=== PATIENT | female | born 1945 | race Two or more races ===

== ENCOUNTER 2018-03-16 07:42 | Outpatient (CLI) | payer OTHER ==
[~2018-03-16 07:42] MED LIST: GUAIFENESIN DM118 ML PO; HYZAAR 50/12.51 TAB; LEVAQUIN750 MG PO; NORVASC2.5 M1; OSEL75CA PO; SINGULAIR10 MG PO; TUSSI-PRES LIQ118 ML PO
== END 2018-03-16 07:50 | disposition home or self-care (01) ==
LOC: LAB 07:42
DX: D50.8 Other iron deficiency anemias (principal); D59.1 Other autoimmune hemolytic anemias; D89.1 Cryoglobulinemia; C90.00 Multiple myeloma not having achieved remission; D51.3 Other dietary vitamin B12 deficiency anemia; D53.8 Other specified nutritional anemias

== ENCOUNTER 2018-08-02 07:02 | Outpatient (CLI) | payer OTHER | END 2018-08-02 09:20 | disposition home or self-care (01) | LOC: LAB 07:02 | DX: D50.8 Other iron deficiency anemias (principal); D80.8 Other immunodeficiencies with predominantly antibody defects; C90.00 Multiple myeloma not having achieved remission ==

== ENCOUNTER → 2018-09-10 06:38 | Outpatient (CLI) | payer OTHER ==
[~2018-09-10 06:38] MED LIST changes: +ADULT ASPIRIN R81 MG PO; +AMLODIPINE BESY10 MG PO; +CIDAFLEX TABLE1 EACH PO; +CLARINEX-D 121 EACH PO; +GLUCOSAMINE H1500 MG PO; +IRO-PLEX LIQUI120 ML PO; +MULTIVITAMINS1 EAC9 PO; +PEPCID40 MG PO; +PLAVIX75 MG PO; +PROBIOTIC1 EAC2 PO; +[UNRECOGNIZED DRUG - OTHER] PO
== END | disposition home or self-care (01) ==
LOC: RAD 06:38 → LAB 06:38
DX: C83.07 Small cell B-cell lymphoma, spleen (principal); Z01.812 Encounter for preprocedural laboratory examination; D68.8 Other specified coagulation defects; Z01.811 Encounter for preprocedural respiratory examination; Z01.810 Encounter for preprocedural cardiovascular examination

== ENCOUNTER → 2018-09-21 | Outpatient (CLI) | payer OTHER ==
[~2018-09-21] MED LIST changes: -AMLODIPINE BESY10 MG PO; -GLUCOSAMINE H1500 MG PO
== END | disposition home or self-care (01) ==
LOC: SONOGRAMA 09:50
DX: N60.11 Diffuse cystic mastopathy of right breast (principal); N60.12 Diffuse cystic mastopathy of left breast

== ENCOUNTER 2018-09-28 06:25 | Inpatient (IN) | payer OTHER ==
[2018-09-29] MEDS ORDERED: GLUCOSAMINE H1500 MG PO (08:31)
[2018-09-29] MEDS ORDERED: AMLODIPINE BESY10 MG PO (08:38)
== END 2018-10-02 10:00 | disposition home or self-care (01) | DRG 821 ==
LOC: CIR.AMB 06:25 → O/R 13:37 → SURH 13:37
PROVIDERS: ADMIT Specialist
PROC: 0DQ80ZZ Repair Small Intestine, Open Approach (ICD-10-PCS; 2018-09-28)
PROC: 07TP0ZZ Resection of Spleen, Open Approach (ICD-10-PCS; principal; 2018-09-28 11:00)
DX: C83.07 Small cell B-cell lymphoma, spleen (principal); K91.72 Accidental puncture and laceration of a digestive system organ or structure during other procedure; K57.32 Diverticulitis of large intestine without perforation or abscess without bleeding; N73.6 Female pelvic peritoneal adhesions (postinfective)

== ENCOUNTER 2018-11-02 07:00 | Outpatient (CLI) | payer OTHER ==
[~2018-11-02 07:00] MED LIST changes: +AMLODIPINE BESY10 MG PO; +GLUCOSAMINE H1500 MG PO
== END 2018-11-02 07:10 | disposition home or self-care (01) ==
LOC: LAB 07:00
DX: I10 Essential (primary) hypertension (principal); E11.9 Type 2 diabetes mellitus without complications; E03.8 Other specified hypothyroidism

== ENCOUNTER 2018-12-27 11:17 | Emergency (ER) | payer OTHER ==
[~2018-12-27] VITALS: Ht 152.4 cm; Wt 47.6 kg
== END 2018-12-27 18:40 | disposition home or self-care (01) ==
LOC: ER 11:17
DX: J40 Bronchitis, not specified as acute or chronic (principal); C83.07 Small cell B-cell lymphoma, spleen; D72.828 Other elevated white blood cell count

== ENCOUNTER 2019-01-03 08:31 | Outpatient (CLI) | payer OTHER | END 2019-01-03 08:36 | disposition home or self-care (01) | LOC: LAB 08:31 | DX: D64.89 Other specified anemias (principal); C83.07 Small cell B-cell lymphoma, spleen; C79.52 Secondary malignant neoplasm of bone marrow; I10 Essential (primary) hypertension; M83.8 Other adult osteomalacia; D55.8 Other anemias due to enzyme disorders ==

== ENCOUNTER 2019-01-27 14:31 | Outpatient (CLI) | payer OTHER | END 2019-01-27 14:54 | disposition home or self-care (01) | LOC: MAMO-SONO 14:31 | DX: Z12.31 Encounter for screening mammogram for malignant neoplasm of breast (principal); Z87.898 Personal history of other specified conditions; R92.0 Mammographic microcalcification found on diagnostic imaging of breast; N60.11 Diffuse cystic mastopathy of right breast; N60.12 Diffuse cystic mastopathy of left breast ==

== ENCOUNTER 2019-06-01 10:29 | Outpatient (CLI) | payer OTHER | END 2019-06-01 10:40 | disposition home or self-care (01) | LOC: SONOGRAMA 10:29 | DX: M70.62 Trochanteric bursitis, left hip (principal) ==

== ENCOUNTER 2019-10-03 07:26 | Outpatient (CLI) | payer OTHER | END 2019-10-03 15:00 | disposition home or self-care (01) | LOC: LAB 07:26 | PROVIDERS: ATTEND Internal Medicine Nephrology | DX: J45.998 Other asthma (principal); N18.2 Chronic kidney disease, stage 2 (mild); D50.8 Other iron deficiency anemias; D80.8 Other immunodeficiencies with predominantly antibody defects; C83.07 Small cell B-cell lymphoma, spleen; C79.52 Secondary malignant neoplasm of bone marrow ==

== ENCOUNTER 2019-10-10 08:16 | Outpatient (CLI) | payer OTHER | END 2019-10-10 08:43 | disposition home or self-care (01) | LOC: NUCLEAR 08:16 | PROVIDERS: ATTEND Internal Medicine Hematology & Oncology | DX: C83.08 Small cell B-cell lymphoma, lymph nodes of multiple sites (principal) | CPT/HCPCS: 78815; A9552 ==

== ENCOUNTER 2020-04-18 07:07 | Outpatient (CLI) | payer OTHER | END 2020-04-18 18:00 | disposition home or self-care (01) | LOC: LAB 07:07 | PROVIDERS: ATTEND Internal Medicine Hematology & Oncology | DX: D64.89 Other specified anemias (principal); M35.1 Other overlap syndromes; N18.30 Chronic kidney disease, stage 3 unspecified; C83.07 Small cell B-cell lymphoma, spleen; C79.52 Secondary malignant neoplasm of bone marrow; E03.8 Other specified hypothyroidism ==

== ENCOUNTER 2020-06-06 07:44 | Outpatient (CLI) | payer OTHER | END 2020-06-06 07:46 | disposition home or self-care (01) | LOC: NUCLEAR 07:44 | PROVIDERS: ATTEND Internal Medicine Rheumatology | DX: I70.213 Atherosclerosis of native arteries of extremities with intermittent claudication, bilateral legs (principal) ==

== ENCOUNTER 2020-06-06 09:31 | Outpatient (CLI) | payer OTHER | END 2020-06-06 09:52 | disposition home or self-care (01) | LOC: MAMO-SONO 09:31 | PROVIDERS: ATTEND Surgery | DX: Z12.31 Encounter for screening mammogram for malignant neoplasm of breast (principal); Z87.898 Personal history of other specified conditions; N60.11 Diffuse cystic mastopathy of right breast; N60.12 Diffuse cystic mastopathy of left breast; R92.0 Mammographic microcalcification found on diagnostic imaging of breast ==

== ENCOUNTER → 2020-10-17 12:56 | Outpatient (CLI) | payer OTHER | END | disposition home or self-care (01) | LOC: NUCLEAR 12:56 | PROVIDERS: ATTEND General Practice | DX: M85.80 Other specified disorders of bone density and structure, unspecified site (principal); M81.0 Age-related osteoporosis without current pathological fracture ==

== ENCOUNTER → 2020-10-26 06:17 | Outpatient (CLI) | payer OTHER | END | disposition home or self-care (01) | LOC: LAB 06:17 | PROVIDERS: ATTEND Internal Medicine Hematology & Oncology | DX: R00.2 Palpitations (principal); I11.9 Hypertensive heart disease without heart failure; I73.89 Other specified peripheral vascular diseases; R73.09 Other abnormal glucose; D64.89 Other specified anemias; C83.07 Small cell B-cell lymphoma, spleen; C79.52 Secondary malignant neoplasm of bone marrow; G56.03 Carpal tunnel syndrome, bilateral upper limbs; I07.2 Rheumatic tricuspid stenosis and insufficiency; N18.2 Chronic kidney disease, stage 2 (mild); I10 Essential (primary) hypertension; R80.8 Other proteinuria ==

== ENCOUNTER 2020-11-28 08:00 | Outpatient (CLI) | payer OTHER | END 2020-11-28 08:30 | disposition home or self-care (01) | LOC: PPH VACUNA 08:00 | DX: Z23 Encounter for immunization (principal) ==

== ENCOUNTER 2021-06-12 07:44 | Outpatient (CLI) | payer OTHER | END 2021-06-12 07:45 | disposition home or self-care (01) | LOC: MAMO-SONO 07:44 | PROVIDERS: ATTEND Surgery | DX: N60.11 Diffuse cystic mastopathy of right breast (principal); N60.12 Diffuse cystic mastopathy of left breast ==

== ENCOUNTER → 2021-10-03 08:48 | Outpatient (CLI) | payer OTHER | END | disposition home or self-care (01) | LOC: LAB 08:48 | PROVIDERS: ATTEND Internal Medicine Hematology & Oncology | DX: C83.07 Small cell B-cell lymphoma, spleen (principal); C79.52 Secondary malignant neoplasm of bone marrow ==

== ENCOUNTER 2021-12-17 09:19 | Outpatient (CLI) | payer OTHER | END 2021-12-17 09:20 | disposition home or self-care (01) | LOC: LAB 09:19 | PROVIDERS: ATTEND Internal Medicine Hematology & Oncology | DX: E78.00 Pure hypercholesterolemia, unspecified (principal); D63.8 Anemia in other chronic diseases classified elsewhere; I10 Essential (primary) hypertension; M35.3 Polymyalgia rheumatica; M83.1 Senile osteomalacia; C83.07 Small cell B-cell lymphoma, spleen; C79.52 Secondary malignant neoplasm of bone marrow ==

== ENCOUNTER → 2022-03-17 09:20 | Outpatient (CLI) | payer OTHER | END | disposition home or self-care (01) | LOC: LAB 09:20 | PROVIDERS: ATTEND Internal Medicine Hematology & Oncology | DX: D64.9 Anemia, unspecified (principal); R74.01 Elevation of levels of liver transaminase levels; C83.07 Small cell B-cell lymphoma, spleen; C79.52 Secondary malignant neoplasm of bone marrow; I13.10 Hypertensive heart and chronic kidney disease without heart failure, with stage 1 through stage 4 chronic kidney disease, or unspecified chronic kidney disease; N18.30 Chronic kidney disease, stage 3 unspecified; I70.293 Other atherosclerosis of native arteries of extremities, bilateral legs; M34.9 Systemic sclerosis, unspecified ==

== ENCOUNTER → 2022-06-26 10:09 | Outpatient (CLI) | payer OTHER | END | disposition home or self-care (01) | LOC: MAMO-SONO 10:09 | PROVIDERS: ATTEND Surgery | DX: N60.11 Diffuse cystic mastopathy of right breast (principal); N60.12 Diffuse cystic mastopathy of left breast ==

== ENCOUNTER 2022-12-23 12:43 | Outpatient (CLI) | payer OTHER | END 2022-12-23 12:45 | disposition home or self-care (01) | LOC: NUCLEAR 12:43 | PROVIDERS: ATTEND Internal Medicine Rheumatology | DX: M81.0 Age-related osteoporosis without current pathological fracture (principal) ==

== ENCOUNTER → 2023-04-14 08:40 | Outpatient (CLI) | payer OTHER ==
[2023-04-14 09:24] LABS: HEMATOCRIT 35.5 % (36.0-45.00); HEMOGLOBIN 11.8 g/dL (12.0-15.00); MEAN CELL VOLUME 88.4 fL (80.00-100.00); MEAN CORPUSCULAR HEMOGLOBIN 29.3 pg (27.00-32.0); MEAN CORPUSCULAR HGB CONC 33.2 g/dl (32.0-36.0); PLATELET COUNT 400 K/uL (150-450); RED BLOOD COUNT 4.02 M/uL (4.00-6.00); RED CELL DISTRIBUTION WIDTH 15.2 % (11.5-14.5)
[2023-04-14 09:40] LABS: ERYTHROCYTE SEDIMENTATION RATE 7 mm/hr
[2023-04-14 10:24] LABS: ALBUMIN 3.9 gm/dL (3.4-5.0); ALKALINE PHOSPHATASE 86 U/L (50-136); ALT/SGPT 18 U/L (12-78); ANION GAP 7 (10.0-20.0); AST/SGOT 14 U/L (15-37); BILIRUBIN TOTAL 0.41 mg/dL (0.3-1.2); BLOOD UREA NITROGEN 31 mg/dL (7-18); BUN CREA RATIO 23 (7.0-25.0); CALCIUM 10.3 mg/dL (8.5-10.1); CARBON DIOXIDE 28 mEq/L (21-32); CHLORIDE 111 mmol/L (98-107); CREATININE SERUM 1.32 mg/dL (0.55-1.02); GFR 38.82; GLOBULINA 2.9 G/DL (2.4-3.5); GLUCOSE FASTING 101 mg/dL (65-100); LDH 163 U/L (84-246); OSMOLALITY SERUM 288 MOSM/KG (275-295); POTASSIUM 5.34 mEq/L (3.5-5.1); SODIUM 141 mmol/L (136-145); TOTAL PROTEIN 6.8 gm/dL (6.4-8.2)
[2023-04-14 10:42] LABS: C-REACTIVE PROTEIN < 0.29 MG/DL (0.00-0.29)
[2023-04-15 16:10] LABS: kappa lambda r 1.6 (0.26-1.65); kappa light 20.8 mg/L (3.3-19.4)
== END | disposition home or self-care (01) ==
LOC: LAB 08:40
PROVIDERS: ATTEND Internal Medicine Hematology & Oncology
DX: C83.07 Small cell B-cell lymphoma, spleen (principal); C79.52 Secondary malignant neoplasm of bone marrow; I10 Essential (primary) hypertension; M83.1 Senile osteomalacia

== ENCOUNTER 2023-06-29 09:39 | Outpatient (CLI) | payer OTHER | END 2023-06-29 09:49 | disposition home or self-care (01) | LOC: MAMO-SONO 09:39 | PROVIDERS: ATTEND Surgery | DX: N60.11 Diffuse cystic mastopathy of right breast (principal); N60.12 Diffuse cystic mastopathy of left breast; Z12.31 Encounter for screening mammogram for malignant neoplasm of breast ==

== ENCOUNTER 2023-09-29 08:56 | Outpatient (CLI) | payer OTHER ==
[2023-09-29 09:40] LABS: HEMATOCRIT 35.9 % (36.0-45.00); HEMOGLOBIN 11.9 g/dL (12.0-15.00); MEAN CELL VOLUME 87.7 fL (80.00-100.00); MEAN CORPUSCULAR HGB CONC 33.1 g/dl (32.0-36.0); PLATELET COUNT 398 K/uL (150-450); RED BLOOD COUNT 4.09 M/uL (4.00-6.00); RED CELL DISTRIBUTION WIDTH 14.5 % (11.5-14.5)
[2023-09-29 09:52] LABS: ERYTHROCYTE SEDIMENTATION RATE 21 mm/hr
[2023-09-29 10:12] LABS: ALKALINE PHOSPHATASE 97 U/L (50-136); ALT/SGPT 14 U/L (12-78); ANION GAP 6 (10.0-20.0); AST/SGOT 13 U/L (15-37); BILIRUBIN TOTAL 0.37 mg/dL (0.3-1.2); BLOOD UREA NITROGEN 31 mg/dL (7-18); BUN CREA RATIO 24 (7.0-25.0); CALCIUM 10.3 mg/dL (8.5-10.1); CARBON DIOXIDE 31 mEq/L (21-32); CHLORIDE 113 mmol/L (98-107); CREATININE SERUM 1.28 mg/dL (0.55-1.02); GFR 40.12; GLOBULINA 2.8 G/DL (2.4-3.5); GLUCOSE FASTING 99 mg/dL (65-100); LDH 169 U/L (84-246); OSMOLALITY SERUM 295 MOSM/KG (275-295); POTASSIUM 5.37 mEq/L (3.5-5.1); SODIUM 145 mmol/L (136-145); TOTAL PROTEIN 6.8 gm/dL (6.4-8.2)
[2023-09-29 10:18] LABS: C-REACTIVE PROTEIN < 0.29 MG/DL (0.00-0.29)
[2023-10-01 15:11] LABS: kappa lambda r 1.32 (0.26-1.65); kappa light 21.3 mg/L (3.3-19.4); lambda light 16.1 mg/L (5.7-26.3)
[2023-10-02 07:06] LABS: BETA-2-MICROGLOBULINA 3.3 mg/L (0.6-2.4)
== END 2023-09-29 08:57 | disposition home or self-care (01) ==
LOC: LAB 08:56
PROVIDERS: ATTEND Internal Medicine Hematology & Oncology
DX: D64.9 Anemia, unspecified (principal); R70.0 Elevated erythrocyte sedimentation rate; I77.6 Arteritis, unspecified; R74.01 Elevation of levels of liver transaminase levels; C83.07 Small cell B-cell lymphoma, spleen; C79.52 Secondary malignant neoplasm of bone marrow

== ENCOUNTER → 2024-03-01 09:34 | Outpatient (CLI) | payer OTHER ==
[2024-03-01 10:23] LABS: PH,URINE 5.5 (5.0-8.0); URINE APPEARANCE Clear; URINE BILIRRUBIN Negative (NEGATIVE); URINE BLOOD Negative; URINE COLOR Yellow; URINE GLUCOSE Negative (NEGATIVE); URINE KETONE Negative (NEGATIVE); URINE LEUKOCYTE Trace; URINE NITRATE Negative; URINE PROTEIN Negative (NEGATIVE); URINE UROBILINOGEN 0.2 E.U./dl
[2024-03-01 10:24] LABS: HEMATOCRIT 35.8 % (36.0-45.00); MEAN CELL VOLUME 87.7 fL (80.00-100.00); MEAN CORPUSCULAR HEMOGLOBIN 29.3 pg (27.00-32.0); MEAN CORPUSCULAR HGB CONC 33.4 g/dl (32.0-36.0); PLATELET COUNT 384 K/uL (150-450); RED BLOOD COUNT 4.08 M/uL (4.00-6.00); RED CELL DISTRIBUTION WIDTH 14.9 % (11.5-14.5)
[2024-03-01 10:30] LABS: URINE BACTERIA 7.5 uL (0.0-1933); URINE EPITHELIAL CELLS 3.3 uL (0.0-38.8); URINE WBC 9.2 uL (0.0-23.2)
[2024-03-01 10:37] LABS: CREATININE URINE RANDOM 54.1 MG/DL (30-125)
[2024-03-01 10:45] LABS: URINE RBC 0.4 uL (0.0-20.8)
[2024-03-01 11:35] LABS: ALBUMIN 4.2 gm/dL (3.4-5.0); BILIRUBIN TOTAL 0.79 mg/dL (0.3-1.2); CALCIUM 10.5 mg/dL (8.5-10.1); CREATININE SERUM 1.71 mg/dL (0.55-1.02); GFR 28.72; POTASSIUM 4.5 mEq/L (3.5-5.1); TOTAL PROTEIN 7.2 gm/dL (6.4-8.2)
== END | disposition home or self-care (01) ==
LOC: LAB 09:34
PROVIDERS: ATTEND Internal Medicine Rheumatology
DX: M34.9 Systemic sclerosis, unspecified (principal); I27.20 Pulmonary hypertension, unspecified; D64.9 Anemia, unspecified; N18.31 Chronic kidney disease, stage 3a; C83.07 Small cell B-cell lymphoma, spleen; C79.52 Secondary malignant neoplasm of bone marrow; C90.00 Multiple myeloma not having achieved remission; R74.01 Elevation of levels of liver transaminase levels

== ENCOUNTER → 2024-09-12 10:05 | Outpatient (CLI) | payer OTHER ==
[2024-09-12 10:39] LABS: BASO % 1.2 % (0.1-1.2); EOS # 0.47 (0.04-0.54); EOS % 4.3 % (0.7-7.0); HEMATOCRIT 35.2 % (34.1-44.9); HEMOGLOBIN 11.6 g/dL (11.2-15.7); LYMPH # 3.55 (1.18-3.74); LYMPH % 32.7 % (19.3-53.1); MEAN CORPUSCULAR HEMOGLOBIN 29.1 pg (25.6-32.2); MONO # 1.32 (0.24-0.82); NEUT # 5.33 (1.56-6.13); NEUT % 49.1 % (34.0-71.1); PLATELET COUNT 413 K/uL (163-369); RED BLOOD COUNT 3.99 M/uL (3.93-5.22); RED CELL DISTRIBUTION WIDTH 13.5 % (11.6-14.4)
[2024-09-12 10:51] LABS: MONO % 12.2 % (4.7-12.5)
[2024-09-12 12:01] LABS: BILIRUBIN TOTAL 0.61 mg/dL (0.3-1.2); CALCIUM 10.6 mg/dL (8.5-10.1); CREATININE SERUM 1.36 mg/dL (0.55-1.02); GFR 37.32; GLOBULINA 2.7 G/DL (2.4-3.5); POTASSIUM 5.09 mEq/L (3.5-5.1); TOTAL PROTEIN 6.7 gm/dL (6.4-8.2)
[2024-09-14 11:12] LABS: kappa lambda r 1.4 (0.26-1.65); kappa light 22.9 mg/L (3.3-19.4); lambda light 16.4 mg/L (5.7-26.3)
== END | disposition home or self-care (01) ==
LOC: LAB 10:05
PROVIDERS: ATTEND Internal Medicine Hematology & Oncology
DX: D64.9 Anemia, unspecified (principal); C83.07 Small cell B-cell lymphoma, spleen; M83.1 Senile osteomalacia; C79.52 Secondary malignant neoplasm of bone marrow